=== PATIENT | male | born 1955 | race Caucasian/White ===

== ENCOUNTER 2018-03-11 16:40 | Emergency (ER) | payer BC, SELFPAY ==
[2018-03-11 16:41] VITALS: BP 129/79; PULSE 81; RESP 14; TEMP 36.6; O2SAT 97; BMI 27.0
--- NOTE | 2018-03-11 16:50 | CT_ITS ---
STUDY: CT ABDOMEN AND PELVIS WITH CONTRAST REASON FOR EXAM: Male, 62 years old. Fell off tractor and landed on back. RADIATION DOSAGE (If Supplied By Facility): CTDIvol = ( 13.99 ) mGy, DLP = ( 746.97 ) mGycm TECHNIQUE: Transaxial images were obtained from the dome of the diaphragm to the symphysis pubis without oral contrast. 100ML ml of Isovue 300 contrast was administered. Sagittal and coronal images were reconstructed. Individualized dose optimization techniques were used for this CT. COMPARISON: August 12, 2015 FINDINGS: The visualized lung bases are unremarkable. The visualized portions of the heart are within normal limits. Normal liver. Normal gallbladder and extrahepatic biliary system. Normal spleen. Normal pancreas. Normal bilateral adrenal glands. Normal right kidney. Normal left kidney. Normal visualized stomach. Normal small intestine. Normal colon. There is non-visualization of the appendix. There is atherosclerotic calcification of the abdominal aorta, without a demonstrated aneurysm. Normal inferior vena cava. Normal retroperitoneum. Normal urinary bladder. Normal abdominal wall. There are diffuse degenerative changes of the visualized lumbar spine. CT/Abdomen/Pelvis W IV Cont ONLY IMPRESSION: No acute intra-abdominal injury. Electronically Signed: Jewell Clark MD at 17:49 EDT Tel , Service support ,
--- NOTE | 2018-03-11 16:59 | ED.DCSUM_ITS ---
- ER Visit Summary Date of Service: 03/11/18 Chief Complaint: Per triage back pain, per patient right-sided pain and more so right-sided abdominal pain. History of Present Illness: The patient is a 62 M who has a history of hypertension on lisinopril only presents with trauma to the right posterior lower ribs secondary to fall from farm tractor 2 days ago. He states he hit the step. There is a keyshawn where he struck the step. He now reports increased pain and right-sided abdominal pain. He is reluctant to have anyone touch it because breathing and movement causes him pain. He denies change in the color of his urine. He denies prior history of back problems. He denies fever or chills. He denies ocular, visual auditory symptoms. He does complain of pain with breathing, but denies chest pain. He does complain of difficulty breathing secondary to pain. He denies cough. He denies shortness of breath. He localizes the abdominal pain to the right side. He denies nausea, vomiting or diarrhea. He denies dysuria, frequency, urgency or hematuria. He denies any paresthesia, anesthesia or motor weakness or radicular pain. He denies head trauma or headache. Please read written note. Physical Examination: Vital signs are remarkable for an elevated blood pressure of 129/79. Head is atraumatic normocephalic. Pupils are equal round reactive. Extraocular muscles are intact. TMs are pearly white with landmarks noted. Nares patent with no drainage. Posterior pharynx without erythema or exudate. Uvula is midline. There is no dysphonia or dysphasia. Trachea is midline. There is no stridor with auscultation of the neck. There is no cervical spine tenderness and cleared per Nexus criteria. Heart is regular without murmur, gallop or rub. S1 and S2 are normal. Lungs are clear to auscultation with good movement of air bilaterally. Abdomen is remarkable for tenderness in the right side with guarding. There is no hepatosplenomegaly. There is evidence of trauma posterior lower right ribs. There is no crepitus obtains air noted. There is no pain the patient the pelvis. GCS is 15. Patient is alert and oriented ?3. Motor is 5/5. Sensation is intact. DTRs are symmetric without clonus or Babinski. Cranial nerves II through XII are intact. Finger to nose to finger was performed adequately. Test Results: CT was reviewed by me and no abnormality was noted. CBC unremarkable. Electro panel is remarkable slight elevation glucose 133. Hepatic is unremarkable. Emergency Department Course and Treatment: He was established and he received a 3 cc/kg bolus. He was medicated with 4 mg of Zofran and 4 mg of morphine sulfate IV push. Baseline blood work was obtained and a CT of the abdomen with IV contrast to evaluate for hepatic injury. Concern regarding possible pulmonary contusion. Treatment Plan: Opiate analgesia, rest and ice Disposition: Charge to home with spouse Impression: 1. Right back contusion initial encounter 2. Posterior right rib contusions she will encounter 3. Blunt abdominal trauma secondary to fall initial encounter This note was generated with [employer] dictation software. It may contain incorrect words, spelling, and punctuation that were not noted in review of the chart prior to signing ED Disposition - Plan for ED Patient: Disposition: Home or Assisted Living Chief Complaint: Trauma Instructions: ED Contusion Rib, ED Contusion Back, ED Strain Abdominal Muscle Prescriptions: Oxycodone HCl/Acetaminophen [Percocet 5/325] 1 tab PO Q6H PRN PRN 5 Days #20 tab PRN Reason: Rib pain and abdominal pain Referrals: Nimesh Alaniz MD [Primary Care Provider] - 1 Week if not improving Additional Instructions: Rest, ice 20-30 minutes at a time 6 times a day and Percocet for severe pain.
[2018-03-11] MEDS: Morphine 4 MG/ML Syringe IV (17:04)
[2018-03-11] MEDS: Ondansetron 4 MG/2 ML Vial IV (17:05)
[2018-03-11 17:27] LABS: Hemoglobin 15.3 g/dl (13.0-16.5); Mean Corp Hgb Conc 33.3 g/gl (32-36); Mean Corpuscular Hgb 28.8 pg (27.0-32.0); Mean Corpuscular Volume 86.6 fL (80-94); Mean Platelet Vol. 8.9 fl (6.2-12.0); Platelet Count 211 K/mm3 (150-450); RBC Distribution Width CV 13.2 % (11.6-14.6); RBC Distribution Width SD 41.9 fl (35.1-43.9); Red Blood Count 5.31 M/mm3 (4.6-6.2); White Blood Count 7.4 K/mm3 (4.4-11.0)
[2018-03-11 17:28] LABS: Scan Indicated on CBC? Y/N NO
[2018-03-11 17:46] LABS: AST(SGOT) 21 U/L (15-37); Alanine Aminotransfer ALT/SGPT 24 U/L (16-61); Albumin, Serum 3.8 g/dL (3.2-5.0); Alkaline Phosphatase 88 U/L (45-117); Anion Gap 7 (5-15); BUN 28 mg/dL (7-18); BUN/Creat Ratio 22.6 RATIO (10-20); Calcium,Total 8.1 mg/dL (8.5-10.1); Chloride 105 mmol/L (98-107); Creatinine, Serum 1.24 mg/dL (0.70-1.30); EST Glomerular Filtration Rate 63 mL/min (>60); Est Glom Filt Rate - Afr Amer 76 mL/min (>60); Estimated Creatinine Clearance 68.66 ml/min; Globulin 3.3 g/dL (2.2-4.2); Glucose 133 mg/dL (74-106); Protein, Total 7.1 g/dL (6.4-8.2); Sodium Level 139 mmol/L (136-145)
[2018-03-11 18:16] VITALS: BP 114/80; PULSE 63; RESP 16; O2SAT 96
== END 2018-03-11 18:20 | disposition home or self-care (01) ==
PROVIDERS: Emergency Provider Emergency Medicine; Family Provider Family Medicine; PCP Family Medicine
DX: S30.0XXA Contusion of lower back and pelvis, initial encounter (principal); S20.221A Contusion of right back wall of thorax, initial encounter; S39.91XA Unspecified injury of abdomen, initial encounter; V84.9XXA Unspecified occupant of special agricultural vehicle injured in nontraffic accident, initial encounter; Y93.9 Activity, unspecified; Y92.9 Unspecified place or not applicable; I10 Essential (primary) hypertension
CPT/HCPCS: 74177; 80048; 80076; 85027; 96374; 96375; 99284; Q9967; A4216; J2405

== ENCOUNTER → 2020-09-25 11:12 | Outpatient (CLI) | payer BC, SELFPAY ==
[2020-09-25 13:08] LABS: Anion Gap 6 (5-15); BUN 18 mg/dL (7-18); BUN/Creat Ratio 15.3 RATIO (10-20); Calcium,Total 8.4 mg/dL (8.5-10.1); Chloride 104 mmol/L (98-107); Cholesterol 196 mg/dL (200); Creatinine, Serum 1.18 mg/dL (0.70-1.30); EST Glomerular Filtration Rate 66 mL/min (>60); Est Glom Filt Rate - Afr Amer 80 mL/min (>60); Glucose 77 mg/dL (74-106); High Density Lipoprotein 48 mg/dL; PSA,Total - Annual Screen 0.31 ng/mL (0.00-4.00); Potassium 4.2 mmol/L (3.5-5.1); Sodium Level 137 mmol/L (136-145); Triglycerides 72 mg/dL; Very Low Density Lipoprotein 14 mg/dL (5-40)
== END ==
PROVIDERS: PCP Family Medicine; Referring Provider Family Medicine; Visit Provider Family Medicine
DX: I10 Essential (primary) hypertension (principal); Z12.5 Encounter for screening for malignant neoplasm of prostate
CPT/HCPCS: 36415; 80048; 80061; 84153; G0103

== ENCOUNTER 2020-10-29 07:42 | Day surgery (SDC) | payer BC, SELFPAY ==
[2020-10-29] VITALS (9 sets, daily range): BP systolic 89–164; BP diastolic 57–94; PULSE 60–72; RESP 16–18; TEMP 36.6–36.9; O2SAT 96–100; BMI 26.6
[2020-10-29] MEDS: Lactated Ringers 1,000 ML 100 ML IV (08:25)
--- NOTE | 2020-10-29 08:34 | H&P.OPEN ---
History of Present Illness Date of Admission: 10/29/20 The patient is a 65 year old M who presents for screening colonoscopy. Past Medical/Surgical History - Planned Operation Planned Operative Procedure/s: cscope open access Date of Operative Procedure: 10/29/20 S.O.S: No - Previous Hospitalizations/Surgeries HX Hospitalizations: No HX of Surgeries: T&A A CHILD. eswl left 2014 Any Problems With Anesthesia: No You/Your Family Experience Fever (Hyperthermia) With Anes: No Cholinesterase deficiency: No - Cardiovascular Hx Chest Pain within Last 2 months: No Hx of Irregular Heartbeat and/or Afib: No Hx Heart Attack: No Hx Congestive Heart Failure: No Hx Rheumatic Fever: No Hx Hypertension: Yes - no med for 2 yrs Hx Internal Defibrillator: No Hx Pacemaker: No Hx Cardiac Catheterization: No Hx Cardiac Surgery/Stents/Etc.: No Hx Stress Test: No HX Edema: No Hx Pain in Legs when Walking/Leg Cramps: No - Respiratory Chronic Cough: No HX of Shortness of Breath: No Hoarseness: No Hx Chronic Obstructive Pulmonary Disease (COPD): No Hx Asthma: No Hx Emphysema: No Hx Sleep Apnea: No CPAP: No BIPAP: No Hx Oxygen Use at Home: No Hx Respiratory Tract Infection/Cold (presently): No Do You Snore Loudly (louder than talking or can be heard): Yes Do You Often Feel Tired/ Fatigued/ Sleepy Dring Daytime?: No Has Anyone Observed You Stop Breathing During Sleep?: No Result (for STOP score): Positive Hx Smoking: No Smoking Status: Never smoker - Gastrointestinal Hx Gastroesophageal Reflux: No Hx Gastrointestinal Disorders: No Hx Gastrointestinal Bleed: No Hx Ulcer: No Hx Hiatal Hernia: No Difficulty Chewing/Swallowing: No Recent Onset of Swallowing Problems: No Special diet followed at home: No Hx Unplanned Weight Loss of 20#: No HX Unplanned Weight Gain of 20#: No - Neurological Hx Seizures: No HX Syncope/Blackout Spells/Unconsciousness: No Hx CVA/Stroke: No Hx Transient Ischemic Attacks (TIA): No Hx Multiple Sclerosis: No Hx Parkinson's Disease: No Hx Head/Neck Injury: No Hx Headaches: Yes - occ Hx Back Injury/Pain: No Recent Onset of Speech Difficulty: No Restless Legs: No Does patient have nerve stimulator: No Patient instructed to have device shut off: No Rep notified?: No - Blood Disorder Hx Leukemia: No Bleeding Tendencies: No Hx Deep Vein Thrombosis: No Hx High Cholesterol: No Blood Transmitted Disease: No Hx Hepatitis: No Hx Cirrhosis: No Hx Anemia: No Hx Blood Disorders: No - Genitourinary Hx Renal Disease: Yes - KIDNEY STONE in the past Hx Dialysis: No - Musculoskeletal Hx Arthritis: No Hx Rheumatoid Arthritis: No Hx Gout: No Recent Onset of an Orthopedic Problem: No - Endocrine Hx Diabetes: No Thyroid Disease: No Hx Steroid Therapy: No - Psycho/Social Hx Substance Use: No Hx Alcohol Use: No Hx Anxiety: No Hx Depression: No Mental Illness: No Hx Dementia: No - Miscellaneous Hx Cancer: No Recent Exposure to Contagious Disease: No Active MRSA: No Hx of C-Diff: No Any Loose Teeth: No Allergies No Known Allergies Allergy (Verified 10/25/20 11:13) - Discharge Is Pt Admitted From a Long Term, or a Halfway: No After D/C, Where Do you Plan to Go: Return Home - From the PAT History Number of Risk Factors: 1 - Physical Exam Vitals/I&O's: Vital Signs Temp Pulse Resp BP Pulse Ox 98 F 72 16 164/94 H 100 10/29/20 07:59 10/29/20 07:59 10/29/20 07:59 10/29/20 07:59 10/29/20 07:59 Oxygen Delivery Method Room Air Weight: 195 lb 15.855 oz Body Mass Index (BMI) 26.6 General: Alert, Oriented x3 Cardiovascular: Regular rate, Regular Rhythm, No murmurs Abdomen: Bowel Sounds Present, Soft, Non Tender, Non-Distended Microbiology Past 72 Hours 10/26/20 09:00 Interface Orders SARS-CoV-2 Antigen (Rapid) - Final Current Medications Lactated Ringer's () 1,000 mls @ 100 mls/hr IV .Q10H DIPTI Last Admin: 10/29/20 08:25 Dose: 100 mls/hr Documented by: Assessment/Plan Assessment: Screening colonoscopy Plan: Colonoscopy Surgery Risks - Colonoscopy Risks Include but are not Limited To: Risks include but are not limited to: Bleeding, perforation requiring further surgery, inability to complete colonoscopy requiring barium enema.
--- NOTE | 2020-10-29 08:45 | COLBX_PTH ---
PATIENT: CUCO MARTINI LOC: EN U#:[id number] AGE/SX: 65/M ROOM: RE10/29/[address]: Dr. Juma Garcia MD : 1955 BED: DIS: 10/29/2020 SPEC #: [id number] RECD: 10/29/20 10:25 STATUS: BRYAN REJumana #: [id number] TONIO: 10/29/20 08:[address]: Juma Garcia DEPT: SURGICAL PATHOLOGY RECD BY: Deborah Mario ENTERED: 10/29/20 10:59 SP TYPE: COLON BX OTHR DR: Dr. Yoel Paz MD Tissues: Sigmoid colon biopsy Procedures: Surgery Specimen Level IV HEADER OPERATION: Colonoscopy - open access (MAC) PRE-OP DIAGNOSIS: Screening TISSUE SUBMITTED: Polyp of sigmoid colon MICROSCOPIC DIAGNOSIS Sigmoid colon polyp, polypectomy: Tubular adenoma. SJ:sofía 10/30/20 MICROSCOPIC DESCRIPTION Slides are reviewed. GROSS DESCRIPTION Received in fixative is one container labeled with the patient's name and designated polyp of sigmoid colon. The specimen consists of a mccormick-pink polyp measuring 0.9 x 0.5 x 0.3 cm. The specimen is totally submitted in one cassette. / SJ:sofía 10/29/20 TC:1 CPT: 43807
--- NOTE | 2020-10-29 09:05 | OP.CCLET_ITS ---
10/29/2020 Jian Paz [address] [place] [address] Re : Colonoscopy procedure for Andrea Dunneman Dear Dr. Paz This procedure was performed on Thursday, October 29, 2020. My impressions and recommendations are as follows: Impressions : - One 8 mm polyp in the sigmoid colon, removed with a hot snare. Resected and retrieved. - Diverticulosis in the sigmoid colon and in the descending colon. No specimens collected. - Non-bleeding internal hemorrhoids. Recommendations : - Repeat colonoscopy in 3 - 5 years for surveillance. - Telephone my office for pathology results in 1 week. - Continue present medications. My findings are described in the full procedure note, which is enclosed. If I can be of further assistance, please feel free to contact me at Doctor phone number(s): , Fax: [phone], Work: . Sincerely, MD Juma Mares MD 10/29/2020 9:04:53 AM This report has been signed electronically.
--- NOTE | 2020-10-29 09:05 | OP.COLON_ITS ---
Patient Name: Andrea Diaz Procedure Date: 10/29/2020 8:36 AM Date of : 1955 Age: 65 Procedure: Colonoscopy Indications: Screening for colorectal malignant neoplasm Providers: Juma Garcia MD Referring MD: Jian Paz Medicines: See the Anesthesia note for documentation of the administered medications Patient Profile: This is a 65 year old male. Refer to note in patient chart for documentation of history and physical. Last Colonoscopy: none. The patient's first colonoscopy is today. Complications: No immediate complications. Procedure: Pre-Anesthesia Assessment: - Prior to the procedure, a History and Physical was performed, and patient medications and allergies were reviewed. The patient's tolerance of previous anesthesia was also reviewed. The risks and benefits of the procedure and the sedation options and risks were discussed with the patient. All questions were answered, and informed consent was obtained. Prior Anticoagulants: The patient has taken no previous anticoagulant or antiplatelet agents. ASA Grade Assessment: II - A patient with mild systemic disease. After reviewing the risks and benefits, the patient was deemed in satisfactory condition to undergo the procedure. After I obtained informed consent, the scope was passed under direct vision. Throughout the procedure, the patient's blood pressure, pulse, and oxygen saturations were monitored continuously. The Colonoscope was introduced through the anus and advanced to the cecum, identified by appendiceal orifice and ileocecal valve. The colonoscopy was performed without difficulty. The patient tolerated the procedure well. The quality of the bowel preparation was good. Scope In: 8:43:28 AM Scope Withdrawal Time 0 hours 6 minutes 39 seconds Scope Out: 9:00:34 AM Total Procedure Duration Time 0 hours 17 minutes 6 seconds Findings: A 8 mm polyp was found in the sigmoid colon. The polyp was sessile. The polyp was removed with a hot snare. Resection and retrieval were complete. Multiple small-mouthed diverticula were found in the sigmoid colon and descending colon. No biopsies or other specimens were collected for this exam. Non-bleeding internal hemorrhoids were found during retroflexion. The hemorrhoids were mild and small. Impression: - One 8 mm polyp in the sigmoid colon, removed with a hot snare. Resected and retrieved. - Diverticulosis in the sigmoid colon and in the descending colon. No specimens collected. - Non-bleeding internal hemorrhoids. Recommendation: - Repeat colonoscopy in 3 - 5 years for surveillance. - Telephone my office for pathology results in 1 week. - Continue present medications. Procedure Code(s): --- Professional --- 17468, Colonoscopy, flexible; with removal of tumor(s), polyp(s), or other lesion(s) by snare technique Diagnosis Code(s): --- Professional --- Z12.11, Encounter for screening for malignant neoplasm of colon D12.5, Benign neoplasm of sigmoid colon K64.8, Other hemorrhoids K57.30, Diverticulosis of large intestine without perforation or abscess without bleeding CPT copyright 2017 [employer]. All rights reserved. The codes documented in this report are preliminary and upon truck rental manager review may be revised to meet current compliance requirements. MD Juma Mares MD 10/29/2020 9:04:53 AM This report has been signed electronically. Number of Addenda: 0 Note Initiated On: 10/29/2020 8:36 AM
== END 2020-10-29 10:40 | disposition home or self-care (01) ==
LOC: EN 07:43 → AC 07:45
PROVIDERS: PCP Family Medicine; Referring Provider Family Medicine; Visit Provider Surgery
PROC: 0DJD8ZZ Inspection of Lower Intestinal Tract, Via Natural or Artificial Opening Endoscopic (ICD-10-PCS; CPT 45378; principal; 2020-10-29 08:40)
DX: Z12.11 Encounter for screening for malignant neoplasm of colon (principal); Z20.828 Contact with and (suspected) exposure to other viral communicable diseases; I10 Essential (primary) hypertension; K64.8 Other hemorrhoids; K57.30 Diverticulosis of large intestine without perforation or abscess without bleeding
CPT/HCPCS: 45385; 87426; 88305; C9803; J7120; J1610; J2405

== ENCOUNTER 2021-03-28 14:50 | Emergency (ER) | payer BC, SELFPAY ==
[2021-03-28 14:51] VITALS: BP 162/117; PULSE 75; RESP 15; TEMP 36.5; O2SAT 96; BMI 27.1
--- NOTE | 2021-03-28 15:10 | RAD_ITS ---
HISTORY: trauma EXAMINATION/TECHNIQUE: XR Hand Min 3 Views: COMPARISON: None FINDINGS: BONES/JOINTS: Multiple fragments avulsed cortex from the distal phalanx of the first digit. Possible fracture plane extends to the articular surface of the first proximal phalanx. Preservation of the joint spaces. No sclerotic or destructive changes observed. SOFT TISSUES: Soft tissue irregularity over the distal tuft of the first digit. Punctate radiopaque foreign bodies overlie the first distal tuft. RAD/Hand Min 3 Views IMPRESSION: Cortical avulsion fractures of the distal tuft first digit with possible nondisplaced intra-articular fracture of the distal phalanx. at 1536 Reported and signed by: Wayne Dennison MD Electronically Signed: Wayne Dennison MD at 15:35 EDT Tel , Service support ,
--- NOTE | 2021-03-28 15:12 | EX.ED.UPPERE ---
HPI History of Present Illness HPI Narrative: Patient presents with right thumb crush injury and hit at home. He is not anticoagulated. Tetanus is up-to-date. He denies any other injury. Chief Complaint: Upper Extremity Injury [facility] Medical History (Updated 03/28/21 @ 15:[address] Jesus Barboza MD) Tubular adenoma of colon Home Medications cephalexin 500 mg PO Q6H #40 cap 03/28/21 [Rx Last Taken Unknown] Allergy/AdvReac Type Severity Reaction Status Date / Time No Known Allergies Allergy Verified 03/28/21 14:53 Surgical History (Updated 11/22/20 @ 08:46 by Alison Ferrer) History of colonoscopy (~10/29/20) Social History (Updated 11/22/20 @ 08:[address] Juma Garcia MD) Smoking Status: Never smoker ROS ROS ED ROS Narrative Past medical history: none Medications: Reviewed Social history: Noncontributory Review of systems: Musculoskeletal: Thumb injury as above Skin: Right thumb laceration as above Neurological: No weakness or paresthesias Hematologic: No easy bleeding or easy bruising EXAM Physical Exam Narrative Exam Narrative: Physical exam General: Patient does not appear in significant distress . Head: Normocephalic, Atraumatic Neck: No C-spine tenderness Cardiovascular: Regular rate, Regular rhythm Respiratory: No distress, CTA bilaterally Back: Nontender, Normal Inspection. Extremities: There is an obvious crush injury, there is lateral laceration near the nail involving the lateral part of the nail, it is extend volarly to the distal thumb region. The tendon function is intact. Neurovascularly intact. No nail matrix injury Skin: Laceration as above Neurological: Normal strength and sensation Const Vital Signs: 03/28/21 14:51 Temperature 97.7 F L Temperature Source Temporal Pulse Rate 75 Respiratory Rate 15 Blood Pressure 162/117 H Blood Pressure Mean 132 Pulse Ox 96 Oxygen Delivery Method Room Air MDM MDM MDM Narrative Medical decision making narrative: The wound was sutured see procedure note. There does seem to be a tuft fracture, Ancef was given, because of the open fracture I will refer to hand surgery. Unfortunately at this time we do not have his hand surgery in town therefore I will refer to Mariah. Patient seems quite trustworthy, if he has any signs or symptoms of infection he is to return. He is hypertensive in the ED but he has an appointment at 5:00 which is in 1 hour with his primary care physician to discuss the specific topic of hypertension. Radiography Diagnostic Testing: Right hand x-ray revealed a distal tuft fracture. This was interpreted by the emergency doctor. Discharge Plan Triage Chief Complaint: Upper Extremity Injury ED Provider: Jesus Barboza Dx/Rx/DC Orders Clinical Impression: Open finger fracture Instructions: ED Fracture, Finger, Open Prescriptions: New cephalexin 500 mg capsule 500 mg PO Q6H Qty: 40 RF: 0 Primary Care Provider: Jian Paz Referrals: Jian Paz MD [Primary Care Provider] - Activity Restrictions/Additional Instructions: Call [facility] [place] [facility] for appointment in 2-3 days [phone] [address] [facility]
[2021-03-28] MEDS: Cefazolin 1 GM/5 ML Vial IM (15:40)
[2021-03-28] MEDS: Lidocaine 1% (30 ml sdv) 30 ML Vial INFILT (15:41)
== END 2021-03-28 16:05 | disposition home or self-care (01) ==
LOC: ED 15:10
PROVIDERS: Emergency Provider Emergency Medicine; PCP Family Medicine
DX: S62.501A Fracture of unspecified phalanx of right thumb, initial encounter for closed fracture (principal); W23.0XXA Caught, crushed, jammed, or pinched between moving objects, initial encounter
CPT/HCPCS: 73130; 96372; 99282

== ENCOUNTER → 2021-04-09 17:09 | Outpatient (CLI) | payer BC, SELFPAY ==
[2021-03-28 14:51] VITALS: BMI 27.1
--- NOTE | 2021-04-09 17:15 | RAD_ITS ---
STUDY: X-RAY - RIGHT HAND, ATTENTION FIRST FINGER REASON FOR EXAM: Male, 65 years old. Pain and swelling TECHNIQUE: 3 view(s) of the finger were obtained. COMPARISON: 03/28/2021 FINDINGS: No interval change in the minimally displaced, multi fragmented fracture in the distal volar aspect of the distal phalanx of the thumb with soft tissue swelling. RAD/Finger(s) Min 2 Views IMPRESSION: No interval change since the previous study. No significant healing has occurred Electronically Signed: Thomas Kemp MD at 17:31 EDT , Service support ,
== END ==
PROVIDERS: PCP Family Medicine; Referring Provider Family Medicine; Visit Provider Family Medicine
DX: S62.62 Displaced fracture of middle phalanx of finger (principal)
CPT/HCPCS: 73140

== ENCOUNTER → 2021-09-30 09:21 | Outpatient (CLI) | payer MEDICARE, OTHER, SELFPAY ==
--- NOTE | 2021-09-30 09:32 | RAD_ITS ---
STUDY: X-RAY - RIGHT CLAVICLE REASON FOR EXAM: Male, 66 years old. Right clavicular enlargement. TECHNIQUE: 2 view(s) of the clavicle. COMPARISON: None. FINDINGS: Normal clavicle. Mild arthrosis of the acromioclavicular joint. Normal visualized sternoclavicular articulation. Normal visualized pulmonary apex. RAD/Clavicle IMPRESSION: Mild AC joint arthrosis. No other abnormality present. Electronically Signed: Daniel Boyer MD at 13:24 EST , Service support ,
--- NOTE | 2021-09-30 09:39 | RAD_ITS ---
STUDY: X-RAY - STERNOCLAVICULAR JOINTS REASON FOR EXAM: Male, 66 years old. Enlargement of right clavicle with lump. TECHNIQUE: 3 view(s) of the bilateral sternoclavicular joints were obtained. COMPARISON: None. FINDINGS: Normal bilateral sternoclavicular articulations. Normal visualized bilateral clavicles. Normal manubrium. Normal visualized ribs. RAD/S-C Jts Min 3 Views IMPRESSION: No abnormality identified. Electronically Signed: Daniel Boyer MD at 13:23 EST , Service support ,
[2021-09-30 10:51] LABS: AST(SGOT) 20 U/L (15-37); Alanine Aminotransfer ALT/SGPT 28 U/L (16-61); Albumin, Serum 3.6 g/dL (3.2-5.0); Alkaline Phosphatase 94 U/L (45-117); Anion Gap 2 (5-15); BUN 17 mg/dL (7-18); Calcium,Total 8.4 mg/dL (8.5-10.1); Chloride 105 mmol/L (98-107); Cholesterol 195 mg/dL (200); Creatinine, Serum 1.06 mg/dL (0.70-1.30); EST Glomerular Filtration Rate 75 mL/min (>60); Est Glom Filt Rate - Afr Amer 90 mL/min (>60); Globulin 3.6 g/dL (2.2-4.2); Glucose 86 mg/dL (74-106); High Density Lipoprotein 47 mg/dL; PSA,Total - Annual Screen 0.32 ng/mL (0.00-4.00); Potassium 4.4 mmol/L (3.5-5.1); Protein, Total 7.2 g/dL (6.4-8.2); Sodium Level 137 mmol/L (136-145); Triglycerides 88 mg/dL; Very Low Density Lipoprotein 18 mg/dL (5-40)
== END ==
PROVIDERS: PCP Family Medicine; Referring Provider Family Medicine; Visit Provider Family Medicine
DX: I10 Essential (primary) hypertension (principal); M89.319 Hypertrophy of bone, unspecified shoulder; Z12.5 Encounter for screening for malignant neoplasm of prostate
CPT/HCPCS: 36415; 71130; 73000; 80053; 80061; 84153; G0103

== ENCOUNTER → 2021-10-12 08:37 | Outpatient (CLI) | payer MEDICARE, OTHER, SELFPAY ==
--- NOTE | 2021-10-12 08:40 | CT_ITS ---
STUDY: CT RIGHT SHOULDER REASON FOR EXAM: Male, 66 years old. CLAVICLE ENLARGEMENT RADIATION DOSAGE (If Supplied By Facility): CTDIvol = ( 26.08 ) mGy, DLP = ( 470.75 ) mGycm TECHNIQUE: The patient was scanned in a multi detector CT scanner. High resolution transaxial imaging was performed without the administration of intravenous contrast material. Sagittal and coronal images were reconstructed. Individualized dose optimization techniques were used for this CT. COMPARISON: December 03, 2011 chest x-ray, September 30, 2021 clavicle x-ray limited sternoclavicular joint imaging September 30, 2021 FINDINGS: There is a well-corticated calcification within the posterior aspect of the glenohumeral joint which may represent costochondral body. Otherwise, Normal glenoid rim, neck and visualized scapula. Normal humeral head, neck and tuberosities. Normal coracoid process. Normal visualized lateral clavicle. There is mild osteoarthritis with articular joint space narrowing. There is a Type II morphology (curved), with a neutral orientation. There is typical degenerative change which is fairly symmetric at the level of the sternoclavicular joint. Normal visualized muscles and soft tissue structures. The visualized right apex is clear. There is visualized degenerative change in the cervical and thoracic spine. CT/Extremity Upper without Contra IMPRESSION: Degenerative change of the right shoulder which includes probable small joint body at the glenohumeral joint. There is further concern for a pain or joint space abnormality and/or soft tissue injury could consider follow-up MRI. There is no particular asymmetric enlargement of the right clavicle when compared to the partially visualized left side on the tobacco sample puller images or the CT axial imaging. Electronically Signed: Alena Guerrier MD at 12:28 EST Tel , Service support ,
== END ==
LOC: CT 08:38
PROVIDERS: PCP Family Medicine; Referring Provider Family Medicine; Visit Provider Family Medicine
DX: M89.319 Hypertrophy of bone, unspecified shoulder (principal)
CPT/HCPCS: 73200

== ENCOUNTER → 2021-10-14 07:47 | Outpatient (CLI) | payer MEDICARE, OTHER, SELFPAY ==
--- NOTE | 2021-10-14 07:49 | AAAS_ITS ---
Reason For Study: AAA Aorta Measurements Aorta Doppler Measurements Proximal aorta measures1.67 X 1.67cm. in cross- Peak systolic flow velocities within the proximal sectional axis. aorta measure 121.7 cm/sec. Proximal aorta measures1.65cm. in longitudinal Peak systolic flow velocities within the mid aorta axis. measure 60.6 cm/sec. Mid aorta measures1.90 X 1.90cm. in cross- Peak systolic flow velocities within the distal sectional axis. aorta measure 53.3 cm/sec. Mid aorta measures1.90cm. in longitudinal axis. Distal aorta measures2.03 X 2.05cm. in cross- sectional axis. Distal aorta measures1.97cm. in longitudinal axis. Left Iliac Artery Left iliac artery measures 1.32 X 1.29 cm. in the longitudinal axis. Left iliac artery measures 1.32 cm. in the cross-sectional axis. Peak systolic velocity in the left iliac artery measures 86.0 cm/sec. Right Iliac Artery Right iliac artery measures 1.25 X 1.28 cm. in the longitudinal axis. Right iliac artery measures 1.30 cm. in the cross-sectional axis. Peak systolic velocity in the right iliac artery measures 136.5 cm/sec. Procedure Aorta IVC Iliac vasculature or bypass grafts [id number]. Exam performed in department. VL/AAA Screening Interpretation Summary Maximal aortic diameter 2.03 x 2.05 cm distally which is normal. Flow velocity slightly elevated with in the proximal abdominal aorta at 121.7 c m/s flow but it is normal in the mid and distal abdominal aorta. This is a nonspecific finding. Left common iliac 1.32 x 1.29 cm which is normal. Normal velocity. Right common iliac 1.25 x 1.28 cm which is normal, slightly elevated velocity b ut this was obtained in an area of tortuosity with no plaque identified at the site. Ordering Physician: Jian Paz Referring Physician: Jian Paz Performed By: Mavis Cantrell, KYLE, RVT
== END ==
PROVIDERS: PCP Family Medicine; Referring Provider Family Medicine; Visit Provider Family Medicine
DX: Z13.6 Encounter for screening for cardiovascular disorders (principal)
CPT/HCPCS: 76706

== ENCOUNTER → 2024-03-28 | Outpatient (CLI) | payer MEDICARE, OTHER, SELFPAY ==
[2024-03-28 17:52] LABS: Absolute Lymphocyte Count 2.06 X10^3/uL (0.83-4.51); Absolute Neutrophil Count 5.4 X10^3/uL (2.0-7.7); Basophil# 0.04 X10^3/uL; Basophil% 0.5 % (0-1); Eosinophil# 0.07 X10^3/uL; Eosinophils% 0.8 % (0-5); Hematocrit 47.6 % (40-54); Hemoglobin 15.5 g/dL (13.0-16.5); Lymphocyte # 2.06 X10^3/ul (0.83-4.51); Lymphocyte % 24.6 % (19-41); Mean Corp Hgb Conc 32.6 g/dL (32-36); Mean Platelet Vol. 9.4 fl (6.2-12.0); Monocyte# 0.77 X10^3/uL; Monocyte% 9.2 % (0-10); NRBC Flagged by Analyzer 0 % (0-5); Neutrophil # 5.39 X10^3/uL (2.7-7.7); Neutrophil % 64.4 % (47-70); Platelet Count 216 K/mm3 (150-450); RBC Distribution Width CV 13.1 % (11.6-14.6); RBC Distribution Width SD 42.4 fl (35.1-43.9); Red Blood Count 5.35 M/mm3 (4.6-6.2); White Blood Count 8.4 K/mm3 (4.4-11.0)
[2024-03-28 18:28] LABS: ALB/GLOB Ratio 1.4 RATIO (0.9-2.4); AST(SGOT) 23 U/L (15-37); Alanine Aminotransfer ALT/SGPT 27 U/L (16-61); Alkaline Phosphatase 86 U/L (45-117); Anion Gap 3 (5-15); BUN 27 mg/dL (7-18); BUN/Creat Ratio 22.7 RATIO (10-20); Calcium,Total 8.6 mg/dL (8.5-10.1); Chloride 107 mmol/L (98-107); Cholesterol 196 mg/dL (200); Creatinine, Serum 1.19 mg/dL (0.70-1.30); EST Glomerular Filtration Rate 65 mL/min (>60); Est Glom Filt Rate - Afr Amer 78 mL/min (>60); Globulin 2.9 g/dL (2.2-4.2); Glucose 103 mg/dL (74-106); High Density Lipoprotein 43 mg/dL; PSA,Total - Annual Screen 0.23 ng/mL (0.00-4.00); Potassium 4.3 mmol/L (3.5-5.1); Protein, Total 6.9 g/dL (6.4-8.2); Sodium Level 139 mmol/L (136-145); Triglycerides 89 mg/dL; Very Low Density Lipoprotein 18 mg/dL (5-40)
== END | disposition home or self-care (01) ==
LOC: MFPLAB 14:34
PROVIDERS: PCP Family Medicine; Visit Provider Family Medicine
DX: I10 Essential (primary) hypertension (principal); Z12.5 Encounter for screening for malignant neoplasm of prostate
CPT/HCPCS: 36415; 80053; 80061; 84153; 85025; G0103

== ENCOUNTER → 2025-03-29 | Outpatient (CLI) | payer MEDICARE, OTHER, SELFPAY ==
[2025-03-29 13:11] LABS: Hemoglobin A1c 5.6 % (<=5.6)
[2025-03-29 13:44] LABS: Anion Gap 9 (5-15); BUN 13 mg/dL (4-19); BUN/Creat Ratio 12.6 RATIO (10-20); Calcium,Total 8.9 mg/dL (7.6-11.0); Chloride 103 mmol/L (98-108); Cholesterol 178 mg/dL (<=200); Creatinine, Serum 0.99 mg/dL (0.70-1.20); EST Glomerular Filtration Rate 83 (>60); Glucose 95 mg/dL (70-99); High Density Lipoprotein 39 mg/dL; Low Density Lipoprotein Calc. 125 mg/dL; PSA,Total - Annual Screen 0.28 ng/mL (0.02-4.00); Potassium 4.9 mmol/L (3.3-5.1); Sodium Level 137 mmol/L (133-145); Triglycerides 66 mg/dL; Very Low Density Lipoprotein 13 mg/dL (5-40); cholesterol:hdl ratio screen 4.52
== END | disposition home or self-care (01) ==
LOC: MFPLAB 10:46
PROVIDERS: PCP Family Medicine
DX: Z00.00 Encounter for general adult medical examination without abnormal findings (principal); Z13.1 Encounter for screening for diabetes mellitus; Z12.5 Encounter for screening for malignant neoplasm of prostate; Z13.220 Encounter for screening for lipoid disorders
CPT/HCPCS: 36415; 80048; 80061; 83036; 84153; G0103

== ENCOUNTER 2025-09-28 08:49 | Day surgery (SDC) | payer MEDICARE, OTHER, SELFPAY ==
[2025-09-28] VITALS (10 sets, daily range): BP systolic 109–157; BP diastolic 62–96; PULSE 61–97; RESP 16; TEMP 36.2–36.3; O2SAT 96–100; BMI 27.0
--- NOTE | 2025-09-28 09:02 | PCM.HP.STD ---
HPI - General General Date of Admission: 09/28/25 Date of Service: 09/28/25 Chief Complaint: Screening colonoscopy HPI Narrative CUCO MARTINI, is a 70 M who presents [today for screening colonoscopy. He had a colonoscopy approximately 5 years ago. He did have an adenomatous polyp that was removed at that time. He does not have any problems with this GI tract at this time. He denies any chest pain or shortness of breath. He does not take any medicines on a daily basis.] [facility] Medical History Wears glasses Kidney stone Non-smoker Tubular adenoma of colon Home Medications ?Medication ?Instructions ?Recorded ?Last Taken ?Type NK 09/26/25 Unknown History Allergy/AdvReac Type Severity Reaction Status Date / Time No Known Allergies Allergy Verified 09/26/25 09:31 Surgical History History of colonoscopy (~10/29/20) Social History Smoking Status: Never smoker ROS Constitutional Constitutional: Denies fatigue, fever(s), poor appetite, weight gain or weight loss Gastrointestinal Gastrointestinal: Denies belching, bloating, change in bowel habits, change in stool character, chewing difficulty, coffee ground emesis, constipation, cramping, diarrhea, dyspepsia, dysphagia, early satiety, excessive flatus, fecal incontinence, heartburn, hematemesis, hematochezia, hemorrhoids, loose stools, melena, nausea, odynophagia, rectal bleeding, tenesmus, vomiting or weight changes Physical Exam Const alert, oriented x3, no apparent distress and healthy appearing General Appearance: cooperative GI normal to inspection, nondistended, normoactive bowel sounds, soft to palpation, non-tender and non-distended Percussion: normal to percussion Rectal Exam: deferred Assessment & Plan Assessment/Plan (1) Encounter for screening colonoscopy: PLAN: He will undergo surveillance colonoscopy. He was explained alternatives, risk and benefits including withstanding bleeding, infection, sepsis, perforation, need for MedSurg and . He will have an ASA of 3.
[2025-09-28] MEDS: Lactated Ringers 1,000 ML 15 ML IV (09:33)
--- NOTE | 2025-09-28 09:40 | PCM.PRE.AN2 ---
ASA Classification* ASA Classification ASA Classification: 2 Assessment & Plan Anesthesia* Anesthesia Assessment Anesthesia Assessment: Discussed sedation and/or anesthesia options, risks, benefits, and alternatives with patient/parents/legal guardian/POA. Questions invited. The patient/parents/legal guardian/POA seems to understand and agrees to proceed with anesthesia plan. Reviewed the physical assessment, medical history, allergy history and patient home medications list prior to surgery/procedure/anesthetic and documented any changes. Performed airway and anesthesia risk assessments. Anesthesia Type Anesthesia Type: MAC Anesthesia Focused Assessment* Temperature: 97.1 F Pulse Rate: 97 Blood Pressure: 157/96 Respiratory Rate: 16 Pulse Ox: 100 Airway Assessment Mouth opens: >3 cm Mallampati Score: II Labs Anesthesia Preop lab: CBC WBC, (4.4-11.0) 8.4 K/mm3 03/28/24, 14:34 RBC, (4.6-6.2) 5.35 M/mm3 03/28/24, 14:34 Hgb, (13.0-16.5) 15.5 g/dL 03/28/24, 14:34 Hct, (40-54) 47.6 % 03/28/24, 14:34 Plt Count, (150-450) 216 K/mm3 03/28/24, 14:34 CHEMISTRY Potassium, (3.3-5.1) 4.9 mmol/L 03/29/25, 10:46 Sodium, (133-145) 137 mmol/L 03/29/25, 10:46 BUN, (4-19) 13 mg/dL 03/29/25, 10:46 Creatinine, (0.70-1.20) 0.99 mg/dL 03/29/25, 10:46 Glucose, (70-99) 95 mg/dL 03/29/25, 10:46 COAG PT, (11.7-14.9) 13.6 SECONDS 08/08/16, 14:34 Pre-Assessment Diagnosis/Proposed Procedure Planned Operative Procedure(s): COLONOSCOPY Anesthesia History 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 When Was Last Pacemaker Check QUESTION #4 FULL TEXT: You/Your Family Experience fever (hyperthermia) with Anesthesia Last Oral Intake Last Oral intake: Last Oral Intake NPO since 05:45 09/28/25 09:25 Meds taken in AM with sips of Yes 09/28/25 09:25 water? Meds patient instructed to take am of surgery PONV PONV - gun stock maker: PONV - gun stock maker Female No 09/26/25 09:32 HX of Motion Sickness No 09/26/25 09:32 HX of N/V After Surgery No 09/26/25 09:32 Non-Smoker Yes 09/26/25 09:32 Duration of Surgery greater No 09/26/25 09:32 than 60 minutes Number of Risk Factors 1 09/26/25 09:32 PONV Score Low Risk 09/26/25 09:32 Height & Weight Height & Weight: Anesthesia: Height & Weight Height 6 ft 09/28/25 09:25 Weight: 90.4 kg 09/28/25 09:25 Body Mass Index (BMI) 27.0 09/28/25 09:25 Respiratory Assessment Respiratory Assessment - gun stock maker: Respiratory Tract Infection Hx - gun stock maker Hx Respiratory Tract Infection No 09/26/25 09:32 STOP Sleep Apnea STOP Sleep Apnea - gun stock maker: STOP Sleep Apnea - gun stock maker Hx Hypertension No 09/26/25 09:32 Hx Sleep Apnea No 09/26/25 09:32 CPAP No 10/29/20 09:05 BIPAP No 10/25/20 11:13 Do you snore loudly (louder No 09/26/25 09:32 than talking or can be heard Do you often feel tired/ No 09/26/25 09:32 fatigued/ sleepy during daytime? Has anyone observed you stop No 09/26/25 09:32 breathing during sleep? STOP Results Negative 09/26/25 09:32 QUESTION #5 FULL TEXT : Do you snore loudly (louder than talking or can be heard through closed doors)? 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 Specify any problems Hx of Preganancy in last 3 N/A 09/26/25 09:32 Months Nurse Filling Out Transfusion [email or web address] 09/26/25 09:32 & Questions: Date: 09/26/25 09/26/25 09:32 Time: 09:34 09/26/25 09:32 Patient unable to answer at this time (ie. confused, unrespo /Reproduction History /Reproductive History - gun stock maker: /Reproductive Hx- gun stock maker Hx Now Gestational Age (in weeks): EDC: Hx Hx Para Hx Section SAB Does the father of the baby or his family experience fever w Father of the baby Malignant Hypertension history comment Active Medications Active Medications: Current Medications Generic Name Dose Route Start Last Admin Trade Name Freq PRN Reason Stop Dose Admin Lactated Ringer's 1,000 mls @ 15 mls/hr 09/28/25 09:00 09/28/25 09:33 IV 15 mls/hr .Q48H DIPTI Administration PFSH Medical History Wears glasses Kidney stone Non-smoker Tubular adenoma of colon Home Medications ?Medication ?Instructions ?Recorded ?Last Taken ?Type NK 09/26/25 Unknown History Allergy/AdvReac Type Severity Reaction Status Date / Time No Known Allergies Allergy Verified 09/28/25 09:24 Surgical History History of colonoscopy (~10/29/20) Social History Smoking Status: Never smoker Review of Systems (Anesthesia) ROS Narrative System reviewed and no additional complaints, except as documented.
--- NOTE | 2025-09-28 09:45 | COLBX_PTH ---
PATIENT: CUCO MARTINI LOC: EN U#:[id number] AGE/SX: 70/M ROOM: RE09/28/[address]: Dr. Alvin Glaser DO : 1955 BED: DIS: 09/28/2025 SPEC #: [id number] RECD: 09/28/25 10:35 STATUS: BRYAN REJumana #: [id number] TONIO: 09/28/25 09:[address]: Alvin Glaser DEPT: SURGICAL PATHOLOGY RECD BY: Asa Hall ENTERED: 09/28/25 11:53 SP TYPE: COLON BX PERCY DR: Dr. Yoel Paz MD Tissues: A - Sigmoid colon biopsy B - Transverse colon Procedures: Surgery Specimen Level IV HEADER OPERATION: Colonoscopy with biopsy PRE-OP DIAGNOSIS: Encounter for screening colonoscopy TISSUE SUBMITTED: A- Sigmoid polyp biopsy, B- Transverse polyp biopsy MICROSCOPIC DIAGNOSIS A. Large intestine, sigmoid polyp, biopsies: * Tubular adenoma B. Large intestine, transverse polyp: * Benign colonic mucosa with a small lymphoid follicle in the superficial lamina propria MICROSCOPIC DESCRIPTION Slides are reviewed. GROSS DESCRIPTION A. Received in fixative is one container labeled with the patient's name and designated Sigmoid polyp biopsy. The specimen consists of two irregular fragments of mccormick tissue that measure 0.4 and 0.5 cm. The specimen is totally submitted in one cassette. B. Received in fixative is one container labeled with the patient's name and designated Transverse polyp biopsy. The specimen consists of one irregular fragment of mccormick tissue that measures 0.3 cm. The specimen is totally submitted in one cassette. PA 09/28/2025 CPT:18039y8
--- NOTE | 2025-09-28 10:30 | OP.PROVAT_ITS ---
09/28/2025 Jian Paz [address] [place] [address] Re : Colonoscopy procedure for Andrea Diaz Dear Dr. Paz This procedure was performed on September. My impressions and recommendations are as follows: Impressions : - Diverticulosis in the recto-sigmoid colon and in the sigmoid colon. - Two 7 mm polyps in the sigmoid colon and in the transverse colon, removed with a cold biopsy forceps. Resected and retrieved. - The examination was otherwise normal on direct and retroflexion views. Recommendations : - Discharge patient to home. - Resume previous diet. - Continue present medications. - Await pathology results. - Repeat colonoscopy in 5 years for surveillance. My findings are described in the full procedure note, which is enclosed. If I can be of further assistance, please feel free to contact me at . Sincerely, Alvin Glaser, 09/28/2025 10:29:45 AM This report has been signed electronically.
--- NOTE | 2025-09-28 10:30 | OP.COLON_ITS ---
Patient Name: Andrea Diaz Procedure Date: 09/28/2025 9:57 AM Date of : 1955 Age: 70 Procedure: Colonoscopy Indications: High risk colon cancer surveillance: Personal history of colonic polyps Providers: Alvin Glaser DO Referring MD: Jian Paz Medicines: Monitored Anesthesia Care Patient Profile: This is a 70 year old male. Refer to note in patient chart for documentation of history and physical. Last Colonoscopy: 5 years ago. Complications: No immediate complications. Procedure: Pre-Anesthesia Assessment: - Prior to the procedure, a History and Physical was performed, and patient medications and allergies were reviewed. The patient is competent. The risks and benefits of the procedure and the sedation options and risks were discussed with the patient. All questions were answered and informed consent was obtained. Patient identification and proposed procedure were verified by the physician in the pre-procedure area. Mental Status Examination: alert and oriented. Airway Examination: normal oropharyngeal airway and neck mobility. Respiratory Examination: clear to auscultation. CV Examination: normal. Prophylactic Antibiotics: The patient does not require prophylactic antibiotics. Prior Anticoagulants: The patient has taken no anticoagulant or antiplatelet agents. ASA Grade Assessment: II - A patient with mild systemic disease. After reviewing the risks and benefits, the patient was deemed in satisfactory condition to undergo the procedure. The anesthesia plan was to use monitored anesthesia care (MAC). Immediately prior to administration of medications, the patient was re-assessed for adequacy to receive sedatives. The heart rate, respiratory rate, oxygen saturations, blood pressure, adequacy of pulmonary ventilation, and response to care were monitored throughout the procedure. The physical status of the patient was re-assessed after the procedure. After I obtained informed consent, the scope was passed under direct vision. Throughout the procedure, the patient's blood pressure, pulse, and oxygen saturations were monitored continuously. The Colonoscope was introduced through the anus and advanced to the cecum, identified by appendiceal orifice and ileocecal valve. The colonoscopy was performed without difficulty. The patient tolerated the procedure well. The quality of the bowel preparation was adequate. The ileocecal valve, appendiceal orifice, and rectum were photographed. Scope In: 10:05:47 AM Scope Withdrawal Time 0 hours 8 minutes 46 seconds Scope Out: 10:22:35 AM Total Procedure Duration Time 0 hours 16 minutes 48 seconds Findings: The perianal and digital rectal examinations were normal. A few small and large-mouthed diverticula were found in the recto-sigmoid colon and sigmoid colon. Two sessile polyps were found in the sigmoid colon and transverse colon. The polyps were 7 mm in size. These polyps were removed with a cold biopsy forceps. Resection and retrieval were complete. Verification of patient identification for the specimen was done. Estimated blood loss was minimal. The exam was otherwise without abnormality on direct and retroflexion views. Impression: - Diverticulosis in the recto-sigmoid colon and in the sigmoid colon. - Two 7 mm polyps in the sigmoid colon and in the transverse colon, removed with a cold biopsy forceps. Resected and retrieved. - The examination was otherwise normal on direct and retroflexion views. Recommendation: - Discharge patient to home. - Resume previous diet. - Continue present medications. - Await pathology results. - Repeat colonoscopy in 5 years for surveillance. Procedure Code(s): --- Professional --- 21579, Colonoscopy, flexible; with biopsy, single or multiple CPT copyright 2021 [employer]. All rights reserved. The codes documented in this report are preliminary and upon rubber splicer review may be revised to meet current compliance requirements. Alvin Glaser DO 09/28/2025 10:29:45 AM This report has been signed electronically. Number of Addenda: 0 Note Initiated On: 09/28/2025 9:57 AM
--- NOTE | 2025-09-28 10:32 | PCM.POST.ANE ---
Anesthesia: Postop Eval I Current Vital Signs Temperature: 97.1 F Pulse Rate: 66 Blood Pressure: 118/63 Respiratory Rate: 16 Pulse Ox: 97 Oxygen Delivery Method: Room Air Assessment Airway patent: Yes Spontaneous unlabored respirations: Yes Mental status: Asleep nausea: No Vomiting: No Anesthesia Complication: No Fluid Hydration Crystalloid volume administer (ml): 600 Total IV fluid infused: 600 Progress Note Anesthesia document: Postop Eval 1 completed: Yes
--- NOTE | 2025-09-28 11:15 | PCM.POSTANE2 ---
Anesthesia Postop Eval I Sum Postop Eval Completion status Anesthesia document: Postop Eval 1 completed: Yes Anesthesia Postop Eval I Summary Anesthesia Postop Eval I Summary: Anesthesia Postop Eval I: Assessment Summary Airway patent Yes 09/28/25 10:33 [email or web address] Spontaneous unlabored Yes 09/28/25 10:33 [email or web address] respirations Mental status Asleep 09/28/25 10:33 [email or web address] nausea No 09/28/25 10:33 [email or web address] Vomiting No 09/28/25 10:33 [email or web address] Anesthesia Postop Eval I: Fluid Summary Crystalloid volume administer 600 09/28/25 10:33 [email or web address] (ml) Colloids volume administered ( ml) Blood Product volume administered (ml) Total IV fluid infused 600 09/28/25 10:33 [email or web address] Anesthesia Postop Eval I: Summary Notes Anesthesia Complication No 09/28/25 10:33 [email or web address] Anesthesia Complication Comment: Post-operative progress note Anesthesia: Postop Eval II Evaluation Mental status: Awake Pain Level: 1 nausea: No Vomiting: No
== END 2025-09-28 11:35 | disposition home or self-care (01) ==
LOC: EN 08:51 → AC 08:55
PROVIDERS: PCP Family Medicine; Referring Provider Family Medicine; Visit Provider Internal Medicine Gastroenterology
PROC: 0DJD8ZZ Inspection of Lower Intestinal Tract, Via Natural or Artificial Opening Endoscopic (ICD-10-PCS; CPT 45378; principal; 2025-09-28 09:40)
DX: Z12.11 Encounter for screening for malignant neoplasm of colon (principal); K57.30 Diverticulosis of large intestine without perforation or abscess without bleeding; Z86.0100 Personal history of colon polyps, unspecified; D12.5 Benign neoplasm of sigmoid colon; D12.3 Benign neoplasm of transverse colon
CPT/HCPCS: 45380; 88305; J2405